=== PATIENT | female | born 1965 | race Two or more races ===

== ENCOUNTER 2020-03-31 10:59 | Emergency (ER) | payer MEDICAID ==
[~2020-03-31] VITALS: Ht 144.8 cm; Wt 61.2 kg
--- NOTE | 2020-03-31 11:19 | Emergency Room Report ---
History of Present Illness General Chief Complaint: Skin Rash/Abscess Present Illness HPI Patient is a 54-year-old female presents for increased right middle finger pain. Reports having recent injury to the nailbed after removing piece of skin. Reports of increased swelling to the finger as well as increased discomfort. Denies any recent trauma. 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 Denies any fever. Is not currently on antibiotics. Allergies: Coded Allergies: DIPHENHYDRAMINE (Verified Allergy, Unknown, 03/31/20) IBUPROFEN (Verified Allergy, Unknown, 03/31/20) COVID-19 Screening Contact w/high risk pt: No Experienced COVID-19 symptoms?: No COVID-19 Testing performed REAL ESTATE REP: Yes COVID-19 Screening: Negative COVID-19 COVID-19 Testing Source: 02/28/20 Patient History Past Medical History: see triage record Reviewed Nursing Documentation: PMH: Agreed; PSxH: Agreed Nursing Documentation-PMH Hx Diabetes: Yes - kidney failure, HD M/W/F Review of Systems All Other Systems: negative except mentioned in HPI Physical Exam Vital Signs Date Time Temp Pulse Resp B/P (MAP) Pulse Ox O2 Delivery O2 Flow Rate FiO2 03/31/20 11:06 97.9 69 15 151/76 (101) 95 Sp02 EP Interpretation: reviewed, normal General Appearance: no apparent distress, alert, Chronically Ill Head: atraumatic ENT: normal ENT inspection, hearing grossly normal, normal voice Neck: normal inspection, full range of motion, supple, no bony tend Respiratory: normal inspection, lungs clear, normal breath sounds, no respiratory distress, no retraction, no wheezing Cardiovascular #1: regular rate, rhythm, no edema Gastrointestinal: normal inspection, normal bowel sounds, non tender, soft, no guarding, no hernia Genitourinary: no CVA tenderness Musculoskeletal: normal inspection, back normal, normal range of motion Neurologic: alert, motor strength/tone normal, responsive, speech normal, normal inspection Psychiatric: normal inspection, judgement/insight normal, mood/affect normal Skin: other - discoloration to middle finger with distal pad swelling, ulceration Medical Decision Making Diagnostic Impression: Primary Impression: Finger infection ER Course Patient presents for increased finger pain. Differential diagnosis include was not limited to cellulitis, abscess, felon, among others. Patient prior history of peripheral vascular disease as well as diabetes. Appears to have some infection to the tip of the finger. Patient was advised risk benefits and alternatives of procedure and she consented to aspiration. Patient's finger was aspirated with a needle without any drainage of any purulent material. Patient was given oral antibiotics in the emergency department. She was advised on wound care as well as to recheck with hand physician . patient is to return if worse. This medical record is generated with [employer] machine tool dresser software. There may be some machine tool dresser discrepancies related to use of this software Last Vital Signs Date Time Temp Pulse Resp B/P (MAP) Pulse Ox O2 Delivery O2 Flow Rate FiO2 03/31/20 11:06 97.9 69 15 151/76 (101) 95 Status: improved Disposition: HOME, SELF-CARE Condition: Stable Scripts Amoxicillin/Potassium Clav 500-125 Tablet* (AUGMENTIN 500-125 TABLET*) 1 Each Tablet 1 TAB ORAL every 24 hours, #10 TAB Prov: Luis Brownlee MD 03/31/20 Luis Brownlee MD Mar 31, 2020 11:19
[2020-03-31 11:30] VITALS: BP 151/76
--- NOTE | 2020-03-31 11:41 | NUR ---
ED Nurse Note:difficulty scanning med, verified prior to giving to pt
--- NOTE | 2020-03-31 12:13 | NUR ---
ED Nurse Note:YEHUDA explained aspiration procedure to pt and son. pt gave son permission to sign the consent. questions addressed
[2020-03-31] MEDS ORDERED: Lidocaine 1% Plain 30 ml INJ ONE (12:20)
[2020-03-31] MEDS ORDERED: AUGMENTIN 500-1 EACH ORAL (12:34)
--- NOTE | 2020-03-31 12:39 | NUR ---
ER DISCHARGE NOTE: Patient is cleared to be discharged per ERMD, pt is aox4, on room air, with stable vital signs. pt was given dc and prescription instructions, pt was able to verbalize understanding. pt is transported out via her wheelchair with son. pt took all belongings.
--- NOTE | 2020-03-31 14:18 | Diagnostic Imaging Report ---
Indication: Middle finger pain Technique: 3 views of the right middle finger Comparison: none Findings: There are fairly extensive vascular calcifications. Well marginated erosions are seen on the ulnar side of the heads of the cyst third and fourth middle phalanges. No acute fracture. No dislocation. The joint spaces are preserved. Impression: No acute bony trauma Numerous and some of the heads of the third and fourth middle phalanges. Significance uncertain in the absence of any other findings but. A due to inflammatory arthropathy. Correlate with clinical findings. Extensive atherosclerosis
== END 2020-03-31 12:40 | disposition home or self-care (01) ==
LOC: EMR 12:07
DX: L08.9 Local infection of the skin and subcutaneous tissue, unspecified (principal); N19 Unspecified kidney failure; E11.9 Type 2 diabetes mellitus without complications; Z99.2 Dependence on renal dialysis; Z88.6 Allergy status to analgesic agent; Z88.8 Allergy status to other drugs, medicaments and biological substances
CPT/HCPCS: 73140; J2001; Z7502; 99283